=== PATIENT | female | born 1965 | race Caucasian/White ===

== ENCOUNTER → 2017-01-01 | Outpatient (CLI) | payer BC ==
[~2017-01-01] VITALS: Ht 165.1 cm; Wt 77.2 kg
[~2017-01-01] MED LIST: ADVAIR HFA120 INHALA IH; Ambien PO; COUMADIN PO; Celexa PO; ENDOCET 5-3251 EACH PO; FEOSOL325 MG PO; IRON325 M1 PO; Magnesium PO; NEXIUM20 MG PO; ORTHO CYCLEN1 TABLET PO; PROBIOTIC1 EAC1 PO; Pulmicort 180 microg IH; RHINOCORT AQUA8.6 G1 NS; SUDAFED 12-HOU120 MG PO; SUDAFED30 MG PO
== END | disposition home or self-care (01) ==
LOC: AMB 12:00
DX: K57.30 Diverticulosis of large intestine without perforation or abscess without bleeding (principal); K21.9 Gastro-esophageal reflux disease without esophagitis; M19.90 Unspecified osteoarthritis, unspecified site; J45.909 Unspecified asthma, uncomplicated; Z96.659 Presence of unspecified artificial knee joint; Z87.891 Personal history of nicotine dependence